=== PATIENT | female | born 1985 | race Caucasian/White ===

== ENCOUNTER 2021-03-18 12:45 | Outpatient (CLI) | payer OTHER, SELFPAY ==
--- NOTE | 2021-03-18 12:56 | XR_ITS ---
WS: [id number] Left foot, 3 views, 03/18/2021 Clinical Data: LEFT TOE PAIN/ATTN:L GREAT TOE/STEPPED ON BY HORSE Comparison: None. Findings: There is a fracture of the lateral base of the distal phalanx of the left great toe. No other fractures are seen. The joint spaces are normal. The soft tissues are unremarkable. XR/XR foot LT min 3V* [id number] Impression: Undisplaced fracture of base of the distal phalanx of the left great toe.
== END 2021-03-18 12:46 | disposition home or self-care (01) ==
LOC: RAD 12:51
PROVIDERS: PCP Family Medicine; Visit Provider Family Medicine
DX: S92.425A Nondisplaced fracture of distal phalanx of left great toe, initial encounter for closed fracture (principal); X58.XXXA Exposure to other specified factors, initial encounter
CPT/HCPCS: 73630

== ENCOUNTER 2021-04-20 09:49 | Outpatient (CLI) | payer OTHER, SELFPAY ==
--- NOTE | 2021-04-20 09:54 | FL_ITS ---
WS: [id number] LUMBAR PUNCTURE UNDER FLUOROSCOPY: OBTAIN CSF FOR ANALYSIS HISTORY: Possible pseudotumor cerebri. COMPARISON: MRI head 10/20/2020 is reviewed. FLUOROSCOPY TIME: 1.2 minutes. Procedure, complications, and risk and benefits explained to the patient. Consent was obtained. Recen t laboratory work and medication are reviewed prior to procedure. Skin over the lumbar is cleansed with ChloraPrep and anesthetized with 1% buffered lidocaine. Access into the thecal sac is achieved. CSF is removed in a sterile manner and placed in the sterile tubes. Approximately 12 ml are removed without difficulty. Opening pressure: 6-7 mmHg. No complications are encountered. CSF this into the laboratory for analysis as requested. FL/FL guided lumbarpunc dx* [id number] IMPRESSION: Uncomplicated lumbar puncture for CSF. Normal opening pressures, 6-7 mmHg.
[2021-04-20 11:48] LABS: CSF Mononuclear # 0.001 10^3/uL (50-90); Mononuclear WBC CSF % 100 % (50-90); Polynuclear WBC CSF % 0 % (0-10); Red Blood Cell CSF 0 10^3/uL (0-0); White Blood Cell CSF 1 /uL (0-5)
[2021-04-20 12:00] LABS: Appearance CSF CLEAR (CLEAR); Color CSF COLORLESS (COLORLESS)
[2021-04-28 18:08] LABS: Lyme Disease AB (IGG),IBL NO BANDS DETECTED; Lyme Disease AB (IGM), IBL NO BANDS DETECTED
== END 2021-04-20 09:50 | disposition home or self-care (01) ==
PROVIDERS: PCP Family Medicine; Visit Provider Ophthalmology
DX: G93.2 Benign intracranial hypertension (principal)
CPT/HCPCS: 62328; 80500; 86617; 87070; 87075; 87205; 89050

== ENCOUNTER 2021-04-20 19:59 | Emergency (ER) | payer OTHER, SELFPAY ==
[2021-04-20 20:03] VITALS: BP 173/68; PULSE 96; RESP 18; TEMP 36.8; O2SAT 100; BMI 19.2
--- NOTE | 2021-04-20 20:06 | XRR_ITS ---
PROCEDURE INFORMATION: Exam: XR Chest Exam date and time: 04/20/2021 8:06 PM Age: 35 years old Clinical indication: Other: Syncope TECHNIQUE: Imaging protocol: XR of the chest. Views: 1 view. Total images: 1 COMPARISON: CR Chest 1 [place] [id number] 10/01/2016 1:39 PM FINDINGS: Lungs: No visible active interstitial or alveolar airspace disease. Pleural spaces: Unremarkable. No pleural effusion. No pneumothorax. Heart/Mediastinum: Cardiac structures and configuration within normal limits. Bones/joints: Unremarkable. XR/XR chest 1V portable [id number] IMPRESSION: Nonacute. Radiation Dose CTDIVOL = (mGy): DLP = (mGy-cm)
--- NOTE | 2021-04-20 20:12 | CTR_ITS ---
PROCEDURE INFORMATION: Exam: CT Head Without Contrast Exam date and time: 04/20/2021 8:12 PM Age: 35 years old Clinical indication: Syncope and collapse; Additional info: Loc TECHNIQUE: Imaging protocol: Computed tomography of the head without contrast. Total images: 187 Radiation optimization: All CT scans at this facility use at least one of these dose optimization techniques: automated exposure control; mA and/or kV adjustment per patient size (includes targeted exams where dose is matched to clinical indication); or iterative reconstruction. COMPARISON: MRI Head w/wo* [id number] 10/20/2020 12:10 PM RADIATION DOSE METRICS: Total DLP (mGy-cm): 780.97 FINDINGS: Brain: No evidence of active or acute intracranial pathologic process, hemorrhage, or trauma. No visible evidence of diffuse cerebral edema or generalized demyelination. No mass effect. No midline shift. Cerebral ventricles: No ventriculomegaly. Paranasal sinuses: Visualized sinuses are unremarkable. No fluid levels. Mastoid air cells: Visualized mastoid air cells are well aerated. Bones/joints: Unremarkable. No acute fracture. Soft tissues: Unremarkable. CT/CT head wo con* [id number] IMPRESSION: No evidence of active or acute intracranial pathologic process, hemorrhage, or trauma. Radiation Dose CTDIVOL = (mGy): DLP = 780.97 (mGy-cm)
--- NOTE | 2021-04-20 20:18 | W.ED.NEUROSD ---
HPI - Neuro Symptoms/Deficit General: Chief Complaint: Neuro Symptoms/Deficit Stated Complaint: LOW bp Time Seen by Provider: 04/20/21 20:11 Source: patient and family Mode of arrival: ambulatory Limitations: no limitations History of Present Illness: HPI Narrative: 35-year-old female who had a lumbar puncture this morning at 10 AM to rule out pseudotumor cerebri. Her opening pressure on LP was 6 and her CSF is normal. She states that roughly 30 minutes ago she started to feel extremely weak and shaky and had a near syncopal event that lasted a few minutes. States that since she just felt lightheaded and folic her blood pressure is low. She appears slightly anxious here and has been shaking. She had no vomiting no diarrhea denies headache denies chest pain. Denies any worsening improving factors. Associated symptoms: Reports syncope; Deny nausea or vomiting Review of Systems Const: Denies: fever(s), chills, body aches or change in appetite Eyes: Denies: blurry vision or eye discomfort ENMT: Denies: throat pain or dental pain Card: Reports: syncope Resp: Denies: dyspnea GI: Denies: abdominal pain, nausea, vomiting or diarrhea : Denies: dysuria Musc: Denies: neck pain or back pain Skin/Breast: Denies: rash Neuro: Reports: weakness in extremities Psych: Denies: depression Keaton/Lymph: Denies: easy bruising All/Imm: Denies: urticaria [facility] Female Reproductive History: Date of last menstrual period: 04/09/21 Physical Exam Const: COMMON NORMALS: no acute distress, patient oriented x3 and healthy appearing HENMT: COMMON NORMALS: normocephalic and atraumatic HEAD & SCALP: normocephalic and atraumatic Eye: COMMON NORMALS: Equal, round and reactive pupils present and EOMs intact bilaterally PUPIL: Yes Equal, round and reactive pupils present Neck/C-Spine: COMMON NORMALS: full ROM and supple Chest: COMMONS NORMALS: normal inspection of the chest and normal palpation of entire chest wall Resp: COMMON NORMALS: normal respiratory effort, No retractions, No use of accessory muscles and clear to auscultation bilaterally AUSCULTATION: clear to auscultation bilaterally Cardio: COMMON NORMALS: regular rate, regular rhythm and No murmurs present (Cardio) RATE: regular rate RHYTHM: regular rhythm GI: COMMON NORMALS: Normal to inspection, nondistended, normoactive bowel sounds present, Soft to palpation, non-tender and no masses PALPATION: Yes Soft to palpation Extremity: COMMON NORMALS: normal to inspection and full ROM Neuro: COMMON NORMALS: patient oriented x3, moves all extremities and no focal motor deficits Psych: COMMON NORMALS: mental status grossly normal, Normal thought process present and cooperative THOUGHT PROCESS: Normal thought process present Skin: COMMON NORMALS: no rashes or lesions noted and no wounds GENERAL SKIN EXAM: no rashes or lesions noted Course Vital Signs: Vital signs: Vital Signs Temperature 98.2 F 04/20/21 20:03 Pulse Rate 73 04/20/21 21:03 Respiratory Rate 12 04/20/21 21:03 Blood Pressure 127/46 04/20/21 21:03 Pulse Oximetry 100 04/20/21 21:03 MDM - Neuro Symptoms/Deficit MDM Narrative: Medical decision making narrative: Patient presents here with lightheadedness and a possible syncopal event likely related to lumbar puncture today. She is been well-appearing here and feels improved blood work and head CT are all normal. Her blood pressure and vital signs here been normal she is stable for discharge and is to follow-up with her PCP. Lab Data: Labs: Lab Results 04/20/21 04/20/21 04/20/21 20:20 20:20 20:20 WBC 8.1 10^3/uL 10^3/ uL (4.0-10.0) RBC 4.70 10^6/uL 10^6 /uL (4.1-5.3) Hgb 14.2 g/dL g/dL (11.5-15.3) Hct 41.3 % % (37.0-47.0) MCV 87.9 fl fl (81-99) MCH 30.2 pg pg (28.0-34.0) MCHC 34.4 g/dL g/dL (30.0-36.0) RDW 11.5 % L % (12.1-15.1) Plt Count 157 10^3/cmm 10^3 /cmm (130-400) MPV 11.5 fL H fL (7.4-10.4) Neut % (Auto) 45.7 % % Lymph % (Auto) 46.9 % % [place] % (Auto) 5.3 % % Eos % (Auto) 1.4 % % Baso % (Auto) 0.5 % % Neut # (Auto) 3.71 10^3/uL 10^3 /uL (1.8-7.7) Lymph # (Auto) 3.8 10^3/uL 10^3/ uL (0.8-4.8) [place] # (Auto) 0.4 10^3/uL 10^3/ uL (0.2-0.9) Eos # (Auto) 0.1 10^3/uL 10^3/ uL (0.0-0.8) Baso # (Auto) 0.0 10^3/uL 10^3/ uL (0.0-0.1) Nucleated RBC % (a uto) 0 % % Nucleated RBCs # 0.0 /100WBC /100W BC Sodium 138 mmol/L mmol/L (136-145) Potassium 3.5 mmol/L mmol/L (3.5-5.1) Chloride 102 mmol/L mmol/L (98-107) Carbon Dioxide 19 mmol/L L mmol/ L (22-29) Anion Gap 20.5 H (5-19) BUN 10 mg/dL mg/dL (6-20) Creatinine 0.5 mg/dL mg/dL (0.5-0.9) GFR Calculation 140.4 mL/min H mL /min (90-130) Glucose 99 mg/dL mg/dL (65-115) Calculated Osmolal ity 285 mOsm/kg mOsm/ kg (285-295) Calcium 8.9 mg/dL mg/dL (8.5-10.5) Total Bilirubin 0.4 mg/dL mg/dL (0.15-1.2) AST 18 U/L U/L (0-32) ALT 12 U/L U/L (0-33) Alkaline Phosphata se 46 IU/L IU/L (35-105) Troponin T Baselin e 6 ng/L ng/L (0-10) Total Protein 7.1 g/dL g/dL (6.6-8.7) Albumin 4.5 g/dL g/dL (3.5-5.2) Globulin 2.6 g/dL g/dL (1.3-4.6) Urine Color Urine Appearance Urine pH Ur Specific Gravit y Urine Protein Urine Glucose (UA) Urine Ketones Urine Blood Urine Nitrate Urine Bilirubin Urine Urobilinogen Ur Leukocyte Betsey ase 04/20/21 21:00 WBC RBC Hgb Hct MCV MCH MCHC RDW Plt Count MPV Neut % (Auto) Lymph % (Auto) [place] % (Auto) Eos % (Auto) Baso % (Auto) Neut # (Auto) Lymph # (Auto) [place] # (Auto) Eos # (Auto) Baso # (Auto) Nucleated RBC % (a uto) Nucleated RBCs # Sodium Potassium Chloride Carbon Dioxide Anion Gap BUN Creatinine GFR Calculation Glucose Calculated Osmolal ity Calcium Total Bilirubin AST ALT Alkaline Phosphata se Troponin T Baselin e Total Protein Albumin Globulin Urine Color Yellow (Yellow) Urine Appearance Clear (CLEAR) Urine pH 7 (5-7) Ur Specific Gravit y 1.000 L (1.005-1.030) Urine Protein Neg (Negative) Urine Glucose (UA) Norm (Normal) Urine Ketones Negative (Negative) Urine Blood Neg (Negative) Urine Nitrate Negative (Negative) Urine Bilirubin Neg (Negative) Urine Urobilinogen Norm mg/dL mg/dL (Negative) Ur Leukocyte Betsey ase Negative (Negative) Imaging Data^: CXR: Radiologist's impression: [address] [address] XRay Report Signed Patient: Dayana Rea Unit #: [id number] : 1985 Age/Sex: 35 / F ADM Date: 04/20/21 Loc: ER Room/Bed: Attending Dr: Ordering Provider/Ordering MD: Astrid Byrd MD Date of Service: 04/20/21 Procedure(s): XR chest 1V portable [id number] Accession Number(s): [id number] Report Number: [id number] PROCEDURE INFORMATION: Exam: XR Chest Exam date and time: 04/20/2021 8:06 PM Age: 35 years old Clinical indication: Other: Syncope TECHNIQUE: Imaging protocol: XR of the chest. Views: 1 view. Total images: 1 COMPARISON: CR Chest 1 [place] [id number] 10/01/2016 1:39 PM FINDINGS: Lungs: No visible active interstitial or alveolar airspace disease. Pleural spaces: Unremarkable. No pleural effusion. No pneumothorax. Heart/Mediastinum: Cardiac structures and configuration within normal limits. Bones/joints: Unremarkable. XR/XR chest 1V portable [id number] IMPRESSION: Nonacute. Radiation Dose CTDIVOL = (mGy): DLP = (mGy-cm) Dictated By: Servando hO Signed By: Servando Oh Signed Date/Time: 04/20/212101 DD/ 05 CT Head: Radiologist's impression: [address] [address] [address] Scan Report Signed Patient: Dayana Rea Unit #: [id number] : 1985 Age/Sex: 35 / F ADM Date: 04/20/21 Loc: ER Room/Bed: Attending Dr: Ordering Provider/Ordering MD: Astrid Byrd MD Date of Service: 04/20/21 Procedure(s): CT head wo con* [id number] Accession Number(s): [id number] Report Number: [id number] PROCEDURE INFORMATION: Exam: CT Head Without Contrast Exam date and time: 04/20/2021 8:12 PM Age: 35 years old Clinical indication: Syncope and collapse; Additional info: Loc TECHNIQUE: Imaging protocol: Computed tomography of the head without contrast. Total images: 187 Radiation optimization: All CT scans at this facility use at least one of these dose optimization techniques: automated exposure control; mA and/or kV adjustment per patient size (includes targeted exams where dose is matched to clinical indication); or iterative reconstruction. COMPARISON: MRI Head w/wo* [id number] 10/20/2020 12:10 PM RADIATION DOSE METRICS: Total DLP (mGy-cm): 780.97 FINDINGS: Brain: No evidence of active or acute intracranial pathologic process, hemorrhage, or trauma. No visible evidence of diffuse cerebral edema or generalized demyelination. No mass effect. No midline shift. Cerebral ventricles: No ventriculomegaly. Paranasal sinuses: Visualized sinuses are unremarkable. No fluid levels. Mastoid air cells: Visualized mastoid air cells are well aerated. Bones/joints: Unremarkable. No acute fracture. Soft tissues: Unremarkable. CT/CT head wo con* [id number] IMPRESSION: No evidence of active or acute intracranial pathologic process, hemorrhage, or trauma. Radiation Dose CTDIVOL = (mGy): DLP = 780.97 (mGy-cm) Dictated By: Servando Oh Signed By: Servando Oh Signed Date/Time: 04/20/212103 DD/ 11 Discharge Plan Discharge Patient Disposition: Home Clinical Impression: Syncope Qualifiers: Syncope type: unspecified Qualified Code(s): R55 - Syncope and collapse Condition: Stable Discharge Orders: Discharge ED (Routine); Ordered 04/20/21 Ordered By: Astrid Byrd Referrals: Parish Rivas MD [Primary Care Provider] - 1-3 days Discharge Diet: Advance as tolerated Discharge Activity: Resume usual activity Patient Instructions: Syncope (ED) Coding Level of Care Code ED Loss Control Engineer for Chg Fwd Exam Comprehensive
[2021-04-20 20:40] LABS: Basophils % 0.5 %; Eosinophils # 0.1 10^3/uL (0.0-0.8); Eosinophils % 1.4 %; Hematocrit 41.3 % (37.0-47.0); Hemoglobin 14.2 g/dL (11.5-15.3); Lymphocytes # 3.8 10^3/uL (0.8-4.8); Lymphocytes % 46.9 %; Mean Corpuscular HGB Conc 34.4 g/dL (30.0-36.0); Mean Corpuscular Hemoglobin 30.2 pg (28.0-34.0); Mean Corpuscular Volume 87.9 fl (81-99); Mean Platelet Volume 11.5 fL (7.4-10.4); Monocytes # 0.4 10^3/uL (0.2-0.9); Monocytes % 5.3 %; Neutrophils # 3.71 10^3/uL (1.8-7.7); Neutrophils % 45.7 %; Nucleated Red Blood Cells % 0 %; Platelet Count 157 10^3/cmm (130-400); Red Cell Distribution Width 11.5 % (12.1-15.1); White Blood Count 8.1 10^3/uL (4.0-10.0)
[2021-04-20 20:56] LABS: Albumin Level 4.5 g/dL (3.5-5.2); Alkaline Phosphatase 46 IU/L (35-105); Blood Urea Nitrogen 10 mg/dL (6-20); Calcium 8.9 mg/dL (8.5-10.5); Carbon Dioxide 19 mmol/L (22-29); Chloride 102 mmol/L (98-107); Globulin 2.6 g/dL (1.3-4.6); Glomerular Filtration Rate 140.4 mL/min (90-130); Glucose 99 mg/dL (65-115); Osmolality Calculated 285 mOsm/kg (285-295); Slide Review Slide Review Perform; Sodium 138 mmol/L (136-145); Total Bilirubin 0.4 mg/dL (0.15-1.2); Total Protein 7.1 g/dL (6.6-8.7)
[2021-04-20 20:57] LABS: Alanine Aminotransferase 12 U/L (0-33); Anion Gap 20.5 (5-19); Aspartate Amino Transferase 18 U/L (0-32); Potassium 3.5 mmol/L (3.5-5.1); Troponin(5th) Baseline 6 ng/L (0-10)
[2021-04-20] MEDS: sodium chloride 0.9% 1,000 ML 999 ML IV (20:57)
[2021-04-20] MEDS: ondansetron 2 mg/ML SDV 2 mL 4 MG IVP (20:57)
[2021-04-20 21:03] VITALS: BP 127/46; PULSE 73; RESP 12; O2SAT 100
[2021-04-20 21:13] LABS: Add Urine Microscopic? NO; Charge for UA Resulting for Rev
[2021-04-20 21:16] LABS: Bilirubin Urine Neg (Negative); Blood Urine Neg (Negative); Glucose Urine UA Norm (Normal); Ketones Urine Negative (Negative); Leukocyte Esterase Urine Negative (Negative); Nitrate Urine Negative (Negative); Protein Urine Neg (Negative); Urine Appearance Clear (CLEAR); Urine Color Yellow (Yellow); Urobilinogen Urine Norm (Negative); pH Urine 7 (5-7)
[2021-04-20 22:40] VITALS: BP 127/46; PULSE 73; RESP 12; TEMP 36.8; O2SAT 100
== END 2021-04-20 22:41 | disposition home or self-care (01) ==
PROVIDERS: Emergency Provider Emergency Medicine; PCP Family Medicine
DX: R55 Syncope and collapse (principal); G97.1 Other reaction to spinal and lumbar puncture
CPT/HCPCS: 70450; 71045; 80053; 81003; 84484; 85025; 96361; 96374; 99283; J2405; J7030

== ENCOUNTER 2021-04-22 14:42 | Emergency (ER) | payer OTHER, SELFPAY ==
[2021-04-22 14:44] VITALS: BP 151/71; PULSE 124; RESP 18; TEMP 36.9; O2SAT 100; BMI 20.1
--- NOTE | 2021-04-22 15:53 | ED_ITS ---
HPI - General Adult General: Chief complaint: General Medical Stated complaint: SHAKING GONNA PASS OUT Time Seen by Provider: 04/22/21 14:57 History of Present Illness: HPI narrative: 35-year-old female presents emergency room with complaints of a headache. She had some shaking on arrival her hands getting numb and were cramping. Initial exam was negative. Patient has had a long ongoing work-up for headaches start retrobulbar. She seen ophthalmology she has had 2 procedures done on her eyes to relieve pressure that actually is normal when her eyes are open and worse when her eyes are closed. They did not feel like it add anything else thought that her optic nerve looked enlarged and she was referred to neurology. She did have a spinal tap to evaluate for normal pressure hydrocephalus her opening pressure was normal. She was here couple days ago had a CT done that was unremarkable at that time. There is no head trauma recently. Initial description on patient arrival sounded as if she was hyperventilating by the time I seen the patient her symptoms had resolved she was breathing normally. See exam below. Onset (ago): minute(s) Location: head, upper extremity and lower extremity Severity: severe (Now resolved) Relieving factors: none Exacerbating factors: none Associated symptoms: Reports decreased appetite, malaise and nausea; Deny chest pain, confusion, cough, diaphoresis, dyspnea, fevers/chills, headache(s), rash, palpitations, seizures, short of breath, syncope, vomiting or weakness Treatments prior to arrival: none Review of Systems Const: Reports: malaise; Denies: diaphoresis ENMT: Denies: throat pain, ear or mastoid pain, nasal discharge or nasal congestion Card: Denies: chest pain, palpitations or syncope Resp: Denies: dyspnea GI: Reports: nausea; Denies: vomiting : Denies: flank pain, difficulty voiding, dysuria, urinary frequency or urinary urgency Skin/Breast: Denies: rash Neuro: Denies: headache(s) or confusion [facility] Female Reproductive History: Date of last menstrual period: 04/09/21 Physical Exam Const: COMMON NORMALS: no acute distress GENERAL APPEARANCE: cooperative and comfortable ORIENTATION/CONSCIOUSNESS: Yes awake, Yes oriented to person, Yes oriented to place and Yes oriented to time HENMT: COMMON NORMALS: normocephalic, atraumatic and hearing grossly normal bilaterally HEAD & SCALP: normocephalic and atraumatic Neck/C-Spine: COMMON NORMALS: no JVD Resp: COMMON NORMALS: normal respiratory effort, No retractions, No use of accessory muscles and clear to auscultation bilaterally AUSCULTATION: clear to auscultation bilaterally Cardio: COMMON NORMALS: no JVD, regular rate, regular rhythm and No murmurs present (Cardio) RATE: regular rate RHYTHM: regular rhythm GI: COMMON NORMALS: Soft to palpation and No hepatosplenomegaly present AUSCULTATION: Yes normoactive bowel sounds PALPATION: Yes Soft to palpation, No Tenderness to palpation present (GI), No Guarding due to palpation present (GI) and Yes No hepatosplenomegaly present Extremity: COMMON NORMALS: normal to inspection, capillary refill normal, no clubbing, cyanosis or edema, no calf tenderness and no pedal edema Neuro: SENSORIUM/ORIENTATION: Yes oriented to person, Yes oriented to place and Yes oriented to time Skin: COMMON NORMALS: no rashes or lesions noted GENERAL SKIN EXAM: no rashes or lesions noted Course Vital Signs: Vital signs: Vital Signs Temperature 98.4 F 04/22/21 14:44 Pulse Rate 83 04/22/21 16:02 Respiratory Rate 16 04/22/21 16:02 Blood Pressure 151/71 04/22/21 14:44 Pulse Oximetry 96 04/22/21 16:02 MDM - General Adult MDM Narrative: Medical decision making narrative: Long discussion with the eileen oakes and her . Her is also a physician. She is completely resolved at this point I will really think that there is much we are going to be able to add in the ER setting to her work-up she has no trauma no really new symptoms or symptoms of actually completely resolved. Is a little suspicious for possible hyperventilation syndrome but we cannot really document that other than just by clinical appearance. I would recommend that they continue the previously planned work-up through neurology. I did call the parking regulation enforcement officer had previously seen her and done the procedures on her eye he agreed they really did not have anything else they were considering other than referral to neurology for more evaluation. Further imaging is unlikely to be helpful at this point. Discharge Plan Discharge Patient Disposition: Home Clinical Impression: Headache around the eyes Condition: Stable Prescriptions: New promethazine 25 mg tablet 25 mg PO Q6H PRN (Reason: headache) Qty: 20 RF: 0 Discharge Orders: Discharge ED (Routine); Ordered 04/22/21 Ordered By: Christofer Parra Referrals: Parish Rivas MD [Primary Care Provider] - Discharge Diet: Usual diet Discharge Activity: Increase activity as tolerated Patient Instructions: Opioid Safety Coding Level of Care Code ED Laborer Bituminous Paving for Chg Fwd Exam Comprehensive
[2021-04-22 16:02] VITALS: PULSE 83; RESP 16; O2SAT 96
== END 2021-04-22 16:04 | disposition home or self-care (01) ==
PROVIDERS: Emergency Provider Family Medicine; PCP Family Medicine
DX: R51.9 Headache, unspecified (principal); R11.0 Nausea; R53.81 Other malaise
CPT/HCPCS: 99281

== ENCOUNTER 2021-07-23 11:54 | Outpatient (CLI) | payer BC, SELFPAY ==
--- NOTE | 2021-07-23 11:58 | MR_ITS ---
WS: [id number] MRI HEAD WITH CONTRAST WITH ATTENTION TO THE INTERNAL AUDITORY CANALS TECHNIQUE: Sagittal T1, T2 axial, T2 axial flair, axial susceptibility weighted imaging, axial diffus ion weighted images, and coronal T2 images were obtained. Pre and post T1 axial and post T1 coronal i mages. ADC and FSPGR images. Post gadolinium images with attention to the internal auditory canals. A xial fiesta imaging. CLINICAL INFORMATION: OPTIC NERVE DISORDER/CHRONIC L TINNITUS/HEADACHE COMPARISON: Outside MRI October 20, 2020 CT April 20, 2021 FINDINGS: No evidence of restricted diffusion to suggest acute ischemia. Ventricular system and basal cisterns are patent. Normal ospina-white differentiation. No suspicious intraparenchymal signal abnormalities. N o hydrocephalus. Normal posterior fossa. Normal vascular flow voids at the skull base. No extra-axial fluid collections. No evidence of mass or mass effect. Retention cyst left maxillary sinus measuring 17 mm. Mastoid air cells are well aerated. Proximal 7th and 8th cranial nerves appear normal. Normal trigeminal nerve root entry zones. No evidence of enhan cing IAC or CP angle mass. Normal optic chiasm and pituitary infundibulum. Normal cavernous sinuses and Meckel's cave. No abnor mal gadolinium enhancement. Normal visualized dural venous sinuses. Incidental slightly low-lying cer ebellar tonsils approximately 2 mm below the foramen magnum. A few prominent lymph nodes in the upper cervical chains likely reactive. MR/MR iac's wo/w con* [id number] IMPRESSION: 1. No evidence of restricted diffusion to suggest acute ischemia. 2. No suspicious intracranial signal abnormalities. Normal ospina-white differen tiation. 3. Incidental slightly low-lying cerebellar tonsils measuring 2 mm below the f oramen magnum. No hydrocephalus. 4. Proximal 7th and 8th cranial nerves are normal in appearance. No evidence o f enhancing IAC or CP angle mass. Normal trigeminal nerve root entry zones. 5. Paranasal sinuses and mastoid air cells are well aerated. Retention cyst le ft maxillary sinus measuring 17 mm. 6. Normal optic chiasm and pituitary infundibulum. 7. No abnormal intracranial enhancement.
--- NOTE | 2021-07-23 11:58 | MR_ITS ---
WS: [id number] MRA HEAD TECHNIQUE: Axial 3-D TOF images obtained with axial images and axial, sagittal, and coronal 2-D refor matted images. CLINICAL INFORMATION: OPTIC NERVE DISORDER/CHRONIC L TINNITUS/HEADACHE COMPARISON: None. FINDINGS: Basilar artery is patent. Persistent left STOVE CARRIAGE OPERATOR. Normal vascularity to the STOVE CARRIAGE OPERATOR territory bilatera lly. Both ICAs are patent at the skull base. Normal vascularity to the EFREN and MCA territories bilaterally . No evidence of high-grade proximal stenosis or aneurysm. MR/MR angio head wo con [id number] IMPRESSION: 1. Normal intracranial MRA. 2. No evidence of flow-limiting stenosis or aneurysm. 3. Normal variant persistent left STOVE CARRIAGE OPERATOR.
== END 2021-07-23 11:55 | disposition home or self-care (01) ==
LOC: RAD 11:56
PROVIDERS: PCP Family Medicine; Visit Provider Family Medicine
DX: H47.099 Other disorders of optic nerve, not elsewhere classified, unspecified eye (principal); H93.12 Tinnitus, left ear; Z51.81 Encounter for therapeutic drug level monitoring; R51.9 Headache, unspecified
CPT/HCPCS: 70544; 70553

== ENCOUNTER 2021-11-16 09:33 | Outpatient (CLI) | payer BC, SELFPAY ==
[2021-11-16 10:55] LABS: SARS Covid-2 Antigen Negative (Negative)
== END 2021-11-16 09:34 | disposition home or self-care (01) ==
PROVIDERS: PCP Family Medicine; Visit Provider Family Medicine
DX: Z20.822 Contact with and (suspected) exposure to COVID-19 (principal)
CPT/HCPCS: 87426

== ENCOUNTER → 2022-03-08 08:47 | Outpatient (BNVA) | payer SELFPAY | PROVIDERS: PCP Family Medicine; Visit Provider Dermatology | DX: Z01.89 Encounter for other specified special examinations (principal) ==

== ENCOUNTER → 2022-06-03 09:56 | Outpatient (BNVA) | payer SELFPAY | PROVIDERS: PCP Family Medicine; Visit Provider Family Medicine | DX: I47.1 Supraventricular tachycardia (principal) | CPT/HCPCS: 80053; 83735; 84443; 85025; 86140 ==

== ENCOUNTER 2022-10-24 07:19 | Outpatient (CLI) | payer OTHER, SELFPAY ==
--- NOTE | 2022-10-24 07:30 | USCV_ITS ---
Dayana Rea Age: 37 Gender: F : 1985 Exam Date: 10/24/2022 08:02 Ordering Phys: Parish Rivas MD Technologist: Luis Enrique De La Torre Exam Location: [facility] [place] Indication: SVT, Chest pain BP: 134 / 79 HR: 59 Rhythm: Sinus Technical Quality: Adequate MEASUREMENTS (Male / Female) Normal Values 2D ECHO LVOT Diameter 2.0 cm LV Ejection Fraction MOD 2C 67.0 % LV Ejection Fraction 2C AL 69.6 % LA Diameter 2.8 cm LA Width 2.8 cm LA Height 3.2 cm RA Width 3.2 cm RA Height 3.6 cm Aorta at Sinotubular Diameter 1.7 cm IVC Diameter 1.9 cm M-MODE Aortic Annulus Diameter 2.6 cm MV E Point Septal Separation 0.5 cm DOPPLER AV Peak Velocity 146.3 cm/s LVOT Peak Velocity 113.0 cm/s AV Area Cont Eq vti 2.3 cm squared AV Area Cont Eq pk 2.3 cm squared MV Peak Velocity 124.0 cm/s MV Area PHT 5.6 cm squared Mitral E to A Ratio 1.6 MV E' Velocity 63.0 cm/s Mitral E to MV E' Ratio 8.2 Mitral E to LV E' Lateral Ratio 8.3 Mitral E to LV E' Septal Ratio 8.1 TR Peak Velocity 150.0 cm/s TR Peak Gradient 9.0 mmHg TR Mean Velocity 119.3 cm/s TR Mean Gradient 5.9 mmHg TR Velocity Time Integral 37.0 cm Right Atrial Pressure 3.0 mmHg Pulmonary Artery Systolic Pressu 12.0 mmHg PV Peak Velocity 67.0 cm/s RV Acceleration Time 0.1 s RV Ejection Time 0.3 s RV AcT/ET 0.4 FINDINGS Left Ventricle Normal left ventricular size, systolic function and wall thickness, with no regional wall motion abnormalities. Normal left ventricular wall thickness. Normal diastolic filling pattern. Left ventricular ejection fraction is estimated at 65 %. Right Ventricle The right ventricle is normal in size and function. Normal right ventricular systolic pressure. Right Atrium The right atrium is normal in size. Left Atrium The left atrium is normal in size. Mitral Valve Structurally normal mitral valve without significant stenosis or prolapse. There is no mitral regurgitation. Aortic Valve Structurally normal aortic valve without significant sclerosis or stenosis. There is no aortic regurgitation. Tricuspid Valve Structurally normal tricuspid valve without significant stenosis or regurgitation. Pulmonary artery systolic pressure is normal. Pulmonic Valve Structurally normal pulmonic valve without significant stenosis. There is no pulmonic regurgitation. Pericardium Normal pericardium without effusion. Aorta Normal ascending aorta dimension. IVC The inferior vena cava appears normal. CONCLUSIONS Normal transthoracic echocardiogram. No change from 09/15/2014 Dr. Robe Keenan MD (Electronically Signed) Final Date: 25 Oct 2022 09:30 S
== END 2022-10-24 07:20 | disposition home or self-care (01) ==
PROVIDERS: PCP Family Medicine; Visit Provider Family Medicine
DX: R07.9 Chest pain, unspecified (principal)
CPT/HCPCS: 93306

== ENCOUNTER → 2022-11-14 13:22 | Outpatient (BNVA) | payer OTHER, SELFPAY | PROVIDERS: PCP Family Medicine; Visit Provider Family Medicine | DX: R30.0 Dysuria (principal); N20.0 Calculus of kidney | CPT/HCPCS: 81000; 87086 ==

== ENCOUNTER 2022-11-15 09:01 | Outpatient (CLI) | payer OTHER, SELFPAY ==
--- NOTE | 2022-11-15 09:14 | XRR_ITS ---
PROCEDURE INFORMATION: Exam: XR Abdomen Exam date and time: 11/15/2022 9:19 AM Age: 37 years old Clinical indication: Condition or disease; Kidney or ureter condition; Calculus (stone) in kidney; Additional info: Kidney stone TECHNIQUE: Imaging protocol: Radiologic exam of the abdomen. Views: Frontal supine view of the abdomen. 1 View. COMPARISON: CT abdomen pelvis wo/w [id number] 11/18/2015 12:24 PM FINDINGS: Gastrointestinal tract: Bilateral punctate renal calyceal stones measuring up to 3 mm on the right and 7.3 mm on the left . Bones/joints: Unremarkable. XR/XR KUB [id number] IMPRESSION: Bilateral punctate renal calyceal stones measuring up to 3 mm on the right and 7.3 mm on the left.
== END 2022-11-15 09:02 | disposition home or self-care (01) ==
PROVIDERS: PCP Family Medicine; Visit Provider Family Medicine
DX: N20.0 Calculus of kidney (principal)
CPT/HCPCS: 74018

== ENCOUNTER → 2023-01-12 09:04 | Outpatient (BNVA) | payer OTHER, SELFPAY | PROVIDERS: PCP Family Medicine; Visit Provider Family Medicine | DX: G43.909 Migraine, unspecified, not intractable, without status migrainosus (principal); R00.0 Tachycardia, unspecified | CPT/HCPCS: 82384; 83835 ==

== ENCOUNTER → 2023-03-17 07:57 | Outpatient (BNVA) | payer OTHER, SELFPAY | PROVIDERS: PCP Family Medicine; Visit Provider Family Medicine | DX: R30.0 Dysuria (principal) | CPT/HCPCS: 81000; 87086 ==